=== PATIENT | male | born 1955 | race Caucasian/White ===

== ENCOUNTER 2019-04-07 23:30 | Inpatient (IN) | payer BC ==
[~2019-04-07 23:30] MED LIST: LIDOCAINE PATCH REMOVAL MC SCH
--- NOTE | 2019-04-07 23:32 | PDOC ---
History of Present Illness - General Chief Complaint: Back Pain Stated Complaint: BACK PAIN Time Seen by Provider: 04/07/19 23:31 History Source: Patient Exam Limitations: No Limitations - History of Present Illness Initial Comments: 04/07/19 23:32 HPI 63 YOM with h/o provoked DVT (no longer on AC), pelvic/hip fx s/p ORIF, peroneal nerve injury, partial seizures on keppra, presenting with acute on chronic lower back pain. pt states he started off having lower back pain after moving boxes and bending about 3 weeks ago, worse with movement; he has seen PMD , pain specialist, neuro surgeon without much relief. about 1 week ago, he saw his pain specialist Dr Burnett at [place], received an epidural injection and cyst drainage at L4-5 level, that was uncomplicated but no relief of his symptoms. Since 10pm tonight, he started having lower back pain and was unable to get out of the chair, 10/10, unable to range or move. He took Motrin at 7pm tonight, without much relief. Pt endorses chronic right lateral knee/leg "burning" pain consistent with his peroneal nerve injury. denies new trauma or falls today. denies bowel or bladder retention/ incontinence. Denies fever, chills, chest pain, SOB, palpitation, dizziness, weakness, N, V, D, abdominal pain, bladder and bowel problems, focal weakness/ paresthesias, leg swelling/pain, rash. Allergies: None Past Medical History/PSH: as above Social history: Lives with family. No tobacco, ETOH or drug use. Meds: atorvastatin, keppra PMD: Dr Lux Review of systems Constitutional: no fevers or chills. No weakness HEENT: no headache or dizziness. CVS: no cp or syncope. Resp: no sob. No cough. Gastrointestinal: no abdominal pain, nausea, vomiting, diarrhea. Genitourinary: no urinary sx, hematuria. no incontinence or rentetion. MUSCULOSKELETAL: No joint pain and swelling. +back pain. SKIN: no redness or skin changes, no discharge, no rash. No wounds. Hematologic: no easy bruising/bleeding. NEUROLOGIC: No headache, dizziness, LOC or altered mental status. No weakness, numbness or tingling. Psych: no anxiety or depression Allergic/Immunologic: no allergies All other systems reviewed and negative, or as documented in HPI. Physical exam General: awake and alert, mild distress 2/2 pain HEENT: NCAT, PERRL, EOMI, clear conjunctiva, anicteric, moist mucus membranes, clear oropharynx, no oral lesions.. Neck: neck supple, FROM Resp: CTAB, normal and even respirations, no respiratory distress CVS: RRR, no murmurs, 2+ peripheral pulses throughout, no peripheral edema Abdomen: soft, NTND, no rebound or guarding. Rectal: sphincter tone intact. Back: ROM limited 2/2 pain. no midline tenderness, +right paravertebral lumbar tenderness. MSK: Pelvis stable, FROM at the prox and distal joints. no edema, STONE x4, ROM intact. No clubbing or cyanosis. +RLE atrophy. Neg SLR bilaterally. Extremities: +RLE atrophy, decreased bulk and tone (chronic) Neuro: alert, oriented appropriately; no focal neurologic deficits, 5/5 plantar and dorsiflexion, SILT in all extrem. Psych: Calm and cooperative Skin: warm and well perfused, cap refill <2 sec, normal color, no rash or skin discoloration. 04/07/19 23:39 04/08/19 00:00 Past History - Past Medical History Allergies/Adverse Reactions: Allergies Allergy/AdvReac Type Severity Reaction Status Date / Time No Known Allergies Allergy Verified 11/24/17 17:28 Home Medications: Ambulatory Orders Atorvastatin Ca [Lipitor] 10 mg PO ASDIR 04/08/19 Ibuprofen [Motrin -] 600 mg PO PRN PRN 04/08/19 Levetiracetam [Keppra] 250 mg PO BID 04/08/19 COPD: No DVT: No - Psycho Social/Smoking Cessation Hx Smoking History: Never smoked Hx Alcohol Use: No Drug/Substance Use Hx: No Substance Use Type: None Heart Score/ECG Review #1 ECG reviewed & interpreted by me at: 23:50 General ECG Interpretation: Sinus Rhythm, Normal Rate, Normal Intervals 04/08/19 00:05 LVH, sinus rhythm at 54 bpm, bradycardia, likely physiologic, nonspecific t wave abnormalilties. ED Treatment Course - LABORATORY CBC & Chemistry Diagram: 04/07/19 23:55 04/07/19 23:55 Medical Decision Making - Medical Decision Making 04/07/19 23:44 Vital Signs Temp Pulse Resp BP Pulse Ox 97.6 F 49 L 16 119/69 100 04/07/19 23:30 04/07/19 23:30 04/07/19 23:30 04/07/19 23:30 04/07/19 23:30 DDx back pain: back strain, lumbago, sciatica, radiculopathy, spinal stenosis. Muscle spasm. Lumbar radiculopathy. considering spinal cord compression or cauda equina, epidural abscess, hematoma , cyst compression, discitis, osteomyelitis, though no symptoms such as bladder retention/incontinence, neuro deficits to suggest at this time, pt with risk factors for conditions.. pt does have risk due to age >50 with recent lumbar/ spinal procedure (epidural) and cyst drainage, so needs to be evaluated for abscess. neuro intact, +right paravertebral lumbar tenderness noted, no sciatica down the leg, reproducible with SLR on the RLE down to buttocks only, sphincter tone intact. will do basic labs, esr/crp - labs unremarkable. no ekg changes, nsr. will need MRI to eval for cord compression, epidural abscess/mass given recent procedure and cyst drainage MRI lumbar spine from 03/28/2019 with no evidence of disc herniation, spinal canal stenosis and normal signal intensity of the bone marrow. There is L3-L4, L4-5 hypertrophic facet joint arthropathy with some trace fluid in the right facet joint, degenerative disc disease noted. disc bulge of neural foramina without compression of nerve roots. 6mm right posterior juxta-articular synovial cyst. L5-S1 circumferential disc bulge, hypertrophyic facet joint arthropathy, disc bulge extension into neural foramina without compression of nerve roots. 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 04/08/19 00:04 04/08/19 00:06 04/08/19 01:52 Discharge - Discharge Information Problems reviewed: Yes Clinical Impression/Diagnosis: Lumbar back pain Condition: Stable - Admission Yes - Follow up/Referral Referrals: Rakan Lux MD [Primary Care Provider] - - Patient Discharge Instructions - Post Discharge Activity
[2019-04-07] MEDS ORDERED: morphine CARPU-JECT 4 MG/1 ML DISP.SYRIN IVPUSH ONE (23:39)
[2019-04-07] MEDS ORDERED: morphine SULFATE 4 MG/ML VIAL ONE (23:45)
[2019-04-07] MEDS ORDERED: LIDOCAINE 5% TOPICAL PATCH TP ONE (23:59)
[2019-04-07] MEDS ORDERED: CYCLOBENZAPRINE HCL 10 MG TABLET (FP) PO ONE (23:59)
[2019-04-08] MEDS ORDERED: CYCLOBENZAPRINE HCL 10 MG TABLET (FP) ONE (00:03)
[2019-04-08] MEDS ORDERED: LIDOCAINE 5% TOPICAL PATCH ONE (00:03)
[2019-04-08 00:26] LABS: BASO % 0.7 % (0-2.0); EOS % 10.2 % (0-4.5); HEMATOCRIT 39.8 % (35.4-49); HEMOGLOBIN 13.5 GM/dL (11.7-16.9); LYMPH % 34.4 % (8-40); MCH 32.9 pg (25.7-33.7); MEAN CELL VOLUME 96.8 fl (80-96); MEAN PLT VOLUME 7.4 fl (7.5-11.1); MONO % 8.3 % (3.8-10.2); NEUT % 46.4 % (42.8-82.8); PLATELET COUNT 215 K/MM3 (134-434); RBC 4.11 M/mm3 (4.00-5.60); RDW 13.3 % (11.9-15.9); WHITE BLOOD COUNT 5.1 K/mm3 (4.0-10.0)
[2019-04-08 01:41] LABS: ALBUMIN 3.6 g/dl (3.4-5.0); ALK PHOS 47 U/L (45-117); ANION GAP 10 MMOL/L (8-16); BILIRUBIN,TOTAL 0.4 mg/dL (0.2-1); CALCIUM 9.1 mg/dL (8.5-10.1); CHLORIDE 101 mmol/L (98-107); CO2 26 mmol/L (21-32); CREATININE 0.6 mg/dL (0.55-1.3); GLUCOSE,RANDOM 78 mg/dL (74-106); POTASSIUM 5.3 mmol/L (3.5-5.1); SGOT/AST 32 U/L (15-37); SGPT/ALT 26 U/L (13-61); SODIUM 136 mmol/L (136-145); TOT PROT 6.3 g/dl (6.4-8.2)
[2019-04-08] MEDS ORDERED: morphine CARPU-JECT 4 MG/1 ML DISP.SYRIN IVPUSH ONE (02:23)
[2019-04-08] MEDS ORDERED: KETOROLAC TROMETHAMINE 15 MG/ML VIAL IVPUSH ONE (02:23)
[2019-04-08 03:16] VITALS: BMI 20.7
[2019-04-08] MEDS ORDERED: morphine SULFATE 4 MG/ML VIAL IVPUSH PRN (06:00)
--- NOTE | 2019-04-08 07:52 | HP ---
"CHIEF COMPLAINT: Pain right gluteus PCP: Dr. 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 Presented to the ED with acute exacerbation of back pain focused in right gluteus muscle. Three weeks ago patient developed sharp pain in the right glut after moving boxes. He has been treating with NSAIDS and exercise. On 03/31 he underwent aspiration of a synovial cyst at L4-L5 and epidural steroid injection. Yesterday the pain became acutely worse and patient was unable to stand or walk, was brought to ED by ambulance. Patient reports no pain when not moving, and excruciating, lightening bolt pain with positioning. Denies fever, sweats, chills. No bladder or bowel incontinence. 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[place], former ED doctor at [facility]; Smoking: no Alcohol: no Drugs: no Allergies No Known Allergies Allergy (Verified 11/24/17 17:28) HOME MEDICATIONS: Home Medications Medication Instructions Recorded Atorvastatin Ca [Lipitor] 10 mg PO ASDIR 04/08/19 Ibuprofen [Motrin -] 600 mg PO PRN PRN 04/08/19 Levetiracetam [Keppra] 250 mg PO BID 04/08/19 REVIEW OF SYSTEMS CONSTITUTIONAL: Absent: fever, chills, diaphoresis, generalized weakness, malaise, loss of appetite, weight change HEENT: Absent: rhinorrhea, nasal congestion, throat pain, throat swelling, difficulty swallowing, mouth swelling, ear pain, eye pain, visual changes CARDIOVASCULAR: Absent: chest pain, syncope, palpitations, irregular heart rate, lightheadedness , peripheral edema RESPIRATORY: Absent: cough, shortness of breath, dyspnea with exertion, orthopnea, wheezing, stridor, hemoptysis GASTROINTESTINAL: Absent: abdominal pain, abdominal distension, nausea, vomiting, diarrhea, constipation, melena, hematochezia GENITOURINARY: Absent: dysuria, frequency, urgency, hesitancy, hematuria, flank pain, genital pain MUSCULOSKELETAL: +pain right gluteus muscle Absent: myalgia, arthralgia, joint swelling, back pain, neck pain SKIN: Absent: rash, itching, pallor HEMATOLOGIC/IMMUNOLOGIC: Absent: easy bleeding, easy bruising, lymphadenopathy, frequent infections ENDOCRINE: Absent: unexplained weight gain, unexplained weight loss, heat intolerance, cold intolerance NEUROLOGIC: Absent: headache, focal weakness or paresthesias, dizziness, unsteady gait, seizure, mental status changes, bladder or bowel incontinence PSYCHIATRIC: Absent: anxiety, depression, suicidal or homicidal ideation, hallucinations. PHYSICAL EXAMINATION Vital Signs - 24 hr 04/07/19 04/08/19 04/08/19 23:30 02:20 06:15 Temperature 97.6 F 97.4 F L 97.4 F L Pulse Rate 49 L 57 L 57 L Respiratory 16 18 18 Rate Blood Pressure 119/69 116/58 L 107/56 L O2 Sat by Pulse 100 100 100 Oximetry (%) GENERAL: Awake, alert, and fully oriented, in no acute distress. HEAD: Normal with no signs of trauma. EYES: Pupils equal, round and reactive to light, extraocular movements intact, sclera anicteric, conjunctiva clear. No lid lag. LUNGS: Breath sounds equal, clear to auscultation bilaterally. No wheezes, and no crackles. No accessory muscle use. HEART: Regular rate and rhythm, normal S1 and S2 without murmur, rub or gallop. ABDOMEN: Soft, nontender, not distended, normoactive bowel sounds, no guarding, no rebound, no masses. No hepatomegaly or splenomegaly. UPPER EXTREMITIES: 2+ pulses, warm, well-perfused. No cyanosis. No clubbing. No peripheral edema. LOWER EXTREMITIES: RLE atrophy NEUROLOGICAL: Cranial nerves II-XII intact. Normal speech. Laboratory Results - last 24 hr 04/07/19 04/07/19 04/07/19 23:55 23:55 23:55 WBC 5.1 RBC 4.11 Hgb 13.5 Hct 39.8 MCV 96.8 H MCH 32.9 MCHC 34.0 RDW 13.3 Plt Count 215 MPV 7.4 L Absolute Neuts (auto) 2.4 Neutrophils % 46.4 Lymphocytes % 34.4 Monocytes % 8.3 Eosinophils % 10.2 H Basophils % 0.7 Nucleated RBC % 0 ESR 2 Sodium 136 Potassium 5.3 H Chloride 101 Carbon Dioxide 26 Anion Gap 10 BUN 15.0 Creatinine 0.6 Est GFR (CKD-EPI)AfAm 124.02 Est GFR (CKD-EPI)NonAf 107.00 Random Glucose 78 Calcium 9.1 Total Bilirubin 0.4 AST 32 ALT 26 Alkaline Phosphatase 47 C-Reactive Protein < 0.3 Total Protein 6.3 L Albumin 3.6 ASSESSMENT/PLAN 63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 Admitted for acute exacerbation of right gluteus muscle pain. Right gluteus muscle pain, possible piriformis syndrome --patient requests Dr. Gifford consult --IV ibuprofen, cyclobenzeprine PRN Lumbar degenerative disc disease --03/28 MRI: L3-L4 hypertrophic facet joint arthropathy, central spinal canal stenosis; L4-L5 disc bulge, no compression, synovial cyst; L5-S1 disc bulge, S1 articular process contacting left L5 nerve root --has been seeing Dr. Clark, ortho spine surgeon, [place] --also follows with Dr. Major, chief jailer, pain management, [place] h/o RLE DVT --provoked, was on anti-coagulation x 6 months, now off Seizure disorder --continue Keppra FEN Fluids: PO intake adequate Electrolytes: replete as indicated Nutrition: gluten-free DVT prophylaxis: subq lovenox Physical therapy Dispo: continues to require inpatient care. Full code. I STOP Search Terms: Km Escobar, 1955 Search Date: 04/08/2019 08:02:44 AM The Drug Utilization Report below displays all of the controlled substance prescriptions, if any, that your patient has filled in the last twelve months. The information displayed on this report is compiled from pharmacy submissions to the Department, and accurately reflects the information as submitted by the pharmacies. This report was requested by: Stephanie Brantley | Reference #: [id number] There are no results for the search terms that you entered. Visit type - Emergency Visit Emergency Visit: Yes ED Registration Date: 04/08/19 Care time: The patient presented to the Emergency Department on the above date and was hospitalized for further evaluation of their emergent condition. - New Patient This patient is new to me today: Yes Date on this admission: 04/08/19 - Critical Care Critical Care patient: No"
[2019-04-08 07:58] LABS: BASO % 1.2 % (0-2.0); EOS % 12.2 % (0-4.5); HEMATOCRIT 37.3 % (35.4-49); HEMOGLOBIN 12.8 GM/dl (11.7-16.9); MCH 33.7 pg (25.7-33.7); MCHC 34.4 g/dl (32.0-35.9); MEAN CELL VOLUME 97.9 fl (80-96); MEAN PLT VOLUME 7.4 fl (7.5-11.1); MONO % 10.3 % (3.8-10.2); NEUT % 39.3 % (42.8-82.8); PLATELET COUNT 207 K/MM3 (134-434); RDW 12.8 % (11.9-15.9); WHITE BLOOD COUNT 4.4 K/mm3 (4.0-10.8)
[2019-04-08 07:59] LABS: CALCIUM 8.6 mg/dl (8.5-10); CREATININE 0.6 mg/dl (0.55-1.3); POTASSIUM 4.1 mmol/L (3.5-5.1)
[2019-04-08] MEDS ORDERED: CYCLOBENZAPRINE HCL 5 MG TABLET PO PRN (08:00)
[2019-04-08] MEDS: levETIRAcetam 250 MG TABLET (FP) PO SCH ×2 (09:28→22:04)
[2019-04-08] MEDS ORDERED: IBUPROFEN 800 MG/8 ML IJ IVPB ONE (10:29)
[2019-04-08] MEDS ORDERED: ENOXAPARIN NA (PORCINE) 40 MG/0.4 ML DISP.SYRIN SQ SCH (11:45)
--- NOTE | 2019-04-08 13:17 | EKG ---
Test Reason : Blood Pressure : / mmHG Vent. Rate : 054 BPM Atrial Rate : 054 BPM P-R Int : 136 ms QRS Dur : 100 ms QT Int : 472 ms P-R-T Axes : 034 047 040 degrees QTc Int : 447 ms POOR DATA QUALITY, INTERPRETATION MAY BE ADVERSELY AFFECTED SINUS BRADYCARDIA MINIMAL VOLTAGE CRITERIA FOR LVH, MAY BE NORMAL VARIANT NONSPECIFIC T WAVE ABNORMALITY ABNORMAL ECG NO PREVIOUS ECGS AVAILABLE Confirmed by JUDE MONDRAGON, LEN ([id number]) on 04/08/2019 1:17:00 PM Referred By: ANASTASIYA MCKEON Confirmed By:LEN ROQUE MD
[2019-04-08] MEDS ORDERED: IBUPROFEN 800 MG/8 ML IJ IVPB PRN ×2 (18:30)
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
--- NOTE | 2019-04-08 20:54 | DS ---
Physical Exam: SUBJECTIVE: Patient seen and examined OBJECTIVE: Vital Signs Period Temp Pulse Resp BP Sys/Weaver Pulse Ox Last 24 Hr 97.4 F-97.9 F 49-57 16-18 107-119/56-70 100-100 PHYSICAL EXAM GENERAL: The patient is awake, alert, and fully oriented, in no acute distress. HEAD: Normal with no signs of trauma. EYES: PERRL, extraocular movements intact, sclera anicteric, conjunctiva clear. ENT: Ears normal, nares patent, oropharynx clear without exudates, moist mucous membranes. NECK: Trachea midline, full range of motion, supple. LUNGS: Breath sounds equal, clear to auscultation bilaterally, no wheezes, no crackles, no accessory muscle use. HEART: Regular rate and rhythm, S1, S2 without murmur, rub or gallop. ABDOMEN: Soft, nontender, nondistended, normoactive bowel sounds, no guarding, no rebound, no hepatosplenomegaly, no masses. EXTREMITIES: 2+ pulses, warm, well-perfused, no edema. NEUROLOGICAL: Cranial nerves II through XII grossly intact. Normal speech, gait not observed. PSYCH: Normal mood, normal affect. SKIN: Warm, dry, normal turgor, no rashes or lesions noted. LABS Laboratory Results - last 24 hr 04/07/19 04/07/19 04/07/19 23:55 23:55 23:55 WBC 5.1 RBC 4.11 Hgb 13.5 Hct 39.8 MCV 96.8 H MCH 32.9 MCHC 34.0 RDW 13.3 Plt Count 215 MPV 7.4 L Absolute Neuts (auto) 2.4 Neutrophils % 46.4 Lymphocytes % 34.4 Monocytes % 8.3 Eosinophils % 10.2 H Basophils % 0.7 Nucleated RBC % 0 ESR 2 Sodium 136 Potassium 5.3 H Chloride 101 Carbon Dioxide 26 Anion Gap 10 BUN 15.0 Creatinine 0.6 Est GFR (CKD-EPI)AfAm 124.02 Est GFR (CKD-EPI)NonAf 107.00 Random Glucose 78 Calcium 9.1 Total Bilirubin 0.4 AST 32 ALT 26 Alkaline Phosphatase 47 C-Reactive Protein < 0.3 Total Protein 6.3 L Albumin 3.6 04/08/19 04/08/19 07:02 07:02 WBC 4.4 RBC 3.80 L Hgb 12.8 Hct 37.3 MCV 97.9 H MCH 33.7 MCHC 34.4 RDW 12.8 Plt Count 207 D MPV 7.4 L Absolute Neuts (auto) 1.7 Neutrophils % 39.3 L D Lymphocytes % 37.0 D Monocytes % 10.3 H Eosinophils % 12.2 H D Basophils % 1.2 Nucleated RBC % ESR Sodium 137 Potassium 4.1 Chloride 103 Carbon Dioxide 29 Anion Gap 5 L BUN 12.0 Creatinine 0.6 Est GFR (CKD-EPI)AfAm 124.02 Est GFR (CKD-EPI)NonAf 107.00 Random Glucose 86 Calcium 8.6 Total Bilirubin AST ALT Alkaline Phosphatase C-Reactive Protein Total Protein Albumin HOSPITAL COURSE: Date of Admission:04/08/19 Date of Discharge: 04/08/19 Discharge Summary Problems reviewed: Yes Reason For Visit: LUMBAR BACK PAIN Current Active Problems Lumbar back pain (Acute) Condition: Improved - Instructions Diet, Activity, Other Instructions: It is recommended you follow up with Dr. Gifford at your earliest opportunity. Referrals: Esa Gifford MD [Staff Physician] - Rakan Lux MD [Primary Care Provider] - Disposition: HOME - Home Medications Comprehensive Discharge Medication List: Ambulatory Orders Atorvastatin Ca [Lipitor] 10 mg PO ASDIR 04/08/19 Ibuprofen [Motrin -] 600 mg PO PRN PRN 04/08/19 Levetiracetam [Keppra] 250 mg PO BID 04/08/19
[2019-04-08] MEDS ORDERED: ATORVASTATIN CA 10 MG TABLET (FP) PO SCH (22:00)
[2019-04-09 08:34] VITALS: BP 109/57; PULSE 48; TEMP 98
== END 2019-04-09 08:45 | disposition home or self-care (01) | DRG 552 ==
LOC: FER 23:30 → FM/S 04-08 00:06 → UNDOADMOB 04-08 01:58 → OBSVTOIN 04-08 07:14 → INTOOBSV 04-08 07:14
PROVIDERS: ADMIT Internal Medicine; ATTEND Nurse Practitioner Family
DX: M51.36 Other intervertebral disc degeneration, lumbar region (principal); M48.07 Spinal stenosis, lumbosacral region; G58.8 Other specified mononeuropathies; Z86.718 Personal history of other venous thrombosis and embolism; G40.909 Epilepsy, unspecified, not intractable, without status epilepticus
CPT/HCPCS: 36415; 80048; 80053; 85025; 85651; 86140; 93005; 97116-GP; 97161-GP; 99285-25; G0378